=== PATIENT | male | born 1960 | race Caucasian/White ===

== ENCOUNTER 2020-04-29 07:53 | Outpatient (CLI) | payer OTHER, SELFPAY ==
--- NOTE | ~2020-04-29 | XR_ITS ---
EXAMINATION: XR abdomen/kub 1V INDICATION: Left-sided kidney stone TECHNIQUE: Supine views of the abdomen were obtained on 2 radiographs. COMPARISON: 04/22/2019 FINDINGS: There is a stable 6 mm stone of the left kidney upper pole. No additional urolithiasis is i dentified. There are no dilated loops of bowel. Phleboliths are noted in the pelvis. Again noted is a small bone island in the left L3 transverse process which gives the appearance of a ureteral stone. 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 IMPRESSION: 1. Stable left nephrolithiasis. Reviewed, dictated and finalized at location B.
== END 2020-04-29 07:54 | disposition home or self-care (01) ==
PROVIDERS: Visit Provider Urology
DX: N20.0 Calculus of kidney (principal)
CPT/HCPCS: 74018

== ENCOUNTER 2022-12-15 08:58 | Outpatient (CLI) | payer OTHER, SELFPAY ==
--- NOTE | ~2022-12-15 | CT_ITS ---
EXAMINATION: CT abdomen pelvis wo con DATE: 12/15/2022 09:30 INDICATION: Left kidney stone follow-up TECHNIQUE: Computed tomography (CT) of the abdomen and pelvis was performed without intravenous contr ast. Automated exposure control and iterative reconstruction technique were employed. Exam dose: 426 .46 mGy-cm total exam DLP. COMPARISON: 12/15/2022 KUB 04/29/2020 KUB 04/09/2018 CT abdomen pelvis FINDINGS: The lung bases are clear. Normal heart size. No pericardial or pleural effusion. The liver, gallbladder, bile ducts, pancreas, pancreatic duct, spleen and adrenal glands appear larisa l. No right renal mass lesion or right urinary tract calculus or hydroureteronephrosis. No left renal mass lesion is evident on this limited noncontrast examination. Approximately 3 x 4.7 and 4.5 x 8 mm upper pole nonobstructing left renal calculi. Pinpoint nonobstru cting lower pole left renal calculus. No left ureteral calculus or hydroureteronephrosis. The urinary bladder is unremarkable. Mild prostate enlargement. Prostate calcification. There is atherosclerotic calcification but normal caliber of the abdominal aorta. No intraperitoneal or retroperitoneal or pelvic mass lesion or adenopathy or ascites. No left spermatic cord or left testicle is identified. Normal appendix. No bowel obstruction or intraperitoneal free air. No suspicious osteolytic or osteoblastic lesions. IMPRESSION: Nonobstructive left nephrolithiasis Reviewed, dictated and finalized at Location A. Reviewed, dictated and finalized at location B.
--- NOTE | ~2022-12-15 | XR_ITS ---
EXAMINATION: XR abdomen/kub 1V DATE: 12/15/2022 09:23 INDICATION: Left kidney stone. TECHNIQUE: A supine view of the abdomen on 2 radiographs was obtained. COMPARISON: CT abdomen and pelvis 12/15/2022 FINDINGS: There are no dilated loops of bowel. There are approximately 3 stones in left kidney measur ing up to 7 mm. There are phleboliths in the pelvis. IMPRESSION: 1. Left kidney stones. Reviewed, dictated and finalized at location A. IMPRESSION: 1. Left kidney stones.
== END 2022-12-15 08:59 | disposition home or self-care (01) ==
LOC: ANHIMG 09:02
PROVIDERS: Visit Provider Urology
DX: N20.0 Calculus of kidney (principal)
CPT/HCPCS: 74018; 74176

== ENCOUNTER 2023-10-04 11:43 | Emergency (ER) | payer OTHER, SELFPAY ==
--- NOTE | ~2023-10-04 | CT_ITS ---
EXAMINATION: CT abdomen pelvis w con DATE: 10/04/2023 13:01 INDICATION: Left lower quadrant abdominal pain. Right flank pain, hematuria. Nausea. TECHNIQUE: Computed tomography (CT) of the abdomen and pelvis was performed with 100 CC Omnipaque 350 intravenous contrast. Automated exposure control and iterative reconstruction technique were employe d. Exam dose: 966.76 mGy-cm total exam DLP. COMPARISON: 12/15/[address] abdomen pelvis FINDINGS: There is minimal infiltrate and/or atelectasis at the lung bases, involving primarily in th e lower lobes. There is mild cardiomegaly. No pericardial or pleural effusion. Diffuse hepatic steatosis. No hepatic space-occupying mass lesion. The gallbladder appears unremarkab le. No pericholecystic fluid or fat stranding. No bile duct or pancreatic duct dilatation. No pancrea tic mass lesion or calcification. Normal splenic size. Normal morphology of the adrenal glands. Approximately 4 mm probable cyst of the posterior upper pole of the right kidney. The right kidney is otherwise unremarkable. No right urinary tract calculus or hydroureteronephrosis. No left renal space occupying mass lesion. There are several up to approximately 4.7 mm nonobstructin g left renal calculi. There is an approximately 5 mm x 7 obstructing calculus at the proximal left ureter with mild left pe lviectasis of hydronephrosis. The urinary bladder is unremarkable. There is prostate enlargement and mild calcification. There is atherosclerotic calcification of the abdominal aorta but no abdominal aortic aneurysm. No in traperitoneal or retroperitoneal or pelvic mass lesion or adenopathy or ascites. Absent left testicle and spermatic cord. No bowel obstruction, bowel wall thickening, pneumatosis or intraperitoneal free air. No suspicious osteolytic or osteoblastic lesions. 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 Reviewed, dictated and finalized at location B. 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
[2023-10-04 11:45] VITALS: BP 179/88; PULSE 62; RESP 20; TEMP 36.6; O2SAT 98
--- NOTE | 2023-10-04 12:16 | PC.NURSE ---
Pt attempted to go to bathroom for urine sample but wasnt sucessful.
[2023-10-04 12:22] LABS: Basophils Absolute Auto 0.1 K/mm3 (0.0-0.1); Basophils Percent Auto 0.9 % (0.2-1.2); Eosinophils Absolute Auto 0.2 K/mm3 (0-0.3); Eosinophils Percent Auto 2.1 % (0-4.4); Hematocrit 51.8 % (42.0-52.0); Hemoglobin 16.4 g/dL (14.0-18.0); Immature Granulocyte Absolute 0.02 K/mm3 (0.00-0.031); Immature Granulocyte Percent A 0.2 % (0-0.5); Immature Platelet Fraction Pct 8.3 % (0.9-11.2); Lymphocytes Absolute Auto 0.81 K/mm3 (0.9-3.2); Lymphocytes Percent Auto 9.9 % (18.3-44.2); Mean Corpuscular HGB Conc 31.7 g/dl (32-36); Mean Corpuscular Volume 85.2 fl (80-100); Mean Platelet Volume 11.1 fl (7.4-10.4); Monocytes Absolute Auto 0.6 K/mm3 (0.1-0.6); Monocytes Percent Auto 6.8 % (2.6-8.5); Neutrophils Absolute Auto 6.6 K/mm3 (1.3-6.7); Neutrophils Percent Auto 80.1 % (45.5-73.1); Platelet Count Result 225 k/mm3 (150-375); Red Blood Count 6.08 M/mm3 (4.6-6.20); Red Cell Distribution Width 13.3 % (11.5-14.5); White Blood Count 8.2 K/mm3 (4.5-10.0)
--- NOTE | 2023-10-04 12:23 | ED.ABDPAIN ---
HPI - Abdominal Pain General Chief Complaint: Abdominal Pain Stated Complaint: Left flank pain Time Seen by Provider: 10/04/23 12:06 History of Present Illness HPI narrative: 63-year-old male with a reported history of prior kidney stones reports for evaluation for left-sided flank pain, nausea and gross hematuria that developed 3 hours prior to arrival. Patient states he is concerned he has another kidney stone, however they have never presented is painful. He denies chest pain or shortness of breath, fever, dysuria, urinary frequency urgency, decreased urine output, diarrhea, melena or hematochezia. Related Data Allergies Allergy/AdvReac Type Severity Reaction Status Date / Time No Known Allergies Allergy Unverified 10/04/23 11:49 Review of Systems Review of Systems: CONSTITUTIONAL: Denies fever, chills, or sweats. EYES: Denies visual changes, redness, or discharge. ENT: Denies rhinorrhea, congestion, sore throat, or otalgia. CARDIOVASCULAR: Denies chest pain, palpitations, or edema. RESPIRATORY: Denies cough or dyspnea. GASTROINTESTINAL: See HPI GENITOURINARY: Denies dysuria or hematuria. SKIN: Denies rash or itching. MUSCULOSKELETAL: Denies back pain, joint pain, or myalgia. NEUROLOGIC: Denies headache, numbness, or weakness. PSYCHIATRIC: Denies anxiety or depression. Exam Narrative: GENERAL: nontoxic appearing. Patient appears uncomfortable and writhing in exam bed. HEAD: Normocephalic, atraumatic. EYES: PERRLA and EOMI. ENT: Nares clear, no rhinorrhea or epistaxis. Mucous membranes moist. NECK: Supple. CHEST: Clear to auscultation. No respiratory distress. HEART: Regular rate and rhythm. No murmur heard. Normal peripheral pulses. ABDOMEN: Normoactive bowel sounds. Abdomen soft with tenderness in the left lower quadrant. No guarding, rebound or rigidity. Left CVA tenderness. No overlying skin changes. EXTREMITIES: Normal range of motion. No edema. SKIN: Warm, dry, no rash. NEURO: No focal deficits. Alert and oriented x3 Course Vital Signs Vital signs: Vital Signs Temperature 97.9 F 10/04/23 11:45 Pulse Rate 62 10/04/23 11:45 Respiratory Rate 20 10/04/23 11:45 Blood Pressure 179/88 H 10/04/23 11:45 Pulse Oximetry 98 10/04/23 11:45 Oxygen Delivery Room Air 10/04/23 11:45 Temperature 97.9 F 10/04/23 11:45 Pulse Rate 60 10/04/23 14:00 Respiratory Rate 18 10/04/23 14:00 Blood Pressure 167/92 H 10/04/23 14:00 Pulse Oximetry 99 10/04/23 14:00 Oxygen Delivery Room Air 10/04/23 11:45 MDM - Abdominal Pain MDM Narrative Medical decision making narrative: 63-year-old male with prior medical history of ureterolithiasis reports for evaluation for sudden onset left lower quadrant pain, hematuria and nausea. See HPI for further history. Vitals significant for elevated blood pressure 179/88, otherwise unremarkable. He is afebrile and nontoxic appearing however does appear to be in pain. See exam above. Cbc without leukocytosis or anemia. Chemistries unremarkable. Creatinine is normal at 0.8 and BUN is 15. Urinalysis with large amounts hematuria 2+ ketones, no infection. Lipase normal. CT abdomen pelvis shows approximately 5 x 7 mm proximal left ureteral calculus with mild left pelviectasis and hydronephrosis. 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 Patient received IV fluids, Zofran and morphine with improvement in symptoms. His pain is now 4/10 in his resting comfortably in exam bed on re-evaluation. case discussed with Urology on-call, Dr. Vargas, who agrees to discharge the patient home and will follow with him next week for intervention. Plan to discharge him home with Flomax , Zofran and [place]. Strict ED return precautions discussed. He and his are agreeable to plan verbalized understanding. Discharged in stable condition. Lab Data
--- NOTE | 2023-10-04 12:28 | PC.NURSE ---
Pt attempted to provide urine sample and was unsuccessful
[2023-10-04] MEDS: MORPHINE SULFATE (*CRX) 4 MG/ML INJ IV PUSH (12:29)
[2023-10-04] MEDS: SODIUM CHLORIDE 0.9% IV 1,000 ML 999 ML IV CONT (12:29)
[2023-10-04] MEDS: ONDANSETRON INJ 4 MG/2 ML VIAL IV PUSH (12:29)
[2023-10-04 12:30] LABS: Alanine Aminotransferase 41 U/L (6-50); Albumin Level 4.6 g/dL (3.5-5.1); Alkaline Phosphatase 78 U/L (38-126); Anion Gap 12 mmol/L (8-16); Aspartate Amino Transferase 31 U/L (17-59); Bilirubin,Total 0.9 mg/dL (0.2-1.3); Blood Urea Nitrogen 15 mg/dL (9-20); Calcium 9.1 mg/dL (8.4-10.2); Carbon Dioxide 25 mmol/L (22-30); Chloride 101 mmol/L (98-107); Estimated CRCL calculation 82 ml/min; Estimated Glomerular Filt Rate > 60; Glucose 140 mg/dL (65-110); Lipase 226 U/L (23-300); Potassium 4.1 mmol/L (3.4-5.0); Sodium 138 mmol/L (137-145)
[2023-10-04 13:41] LABS: Appearance Urine Slightly Cloudy (Clear); Color Urine Amber (Yellow); Glucose Urine UA Negative (Negative); Ketones Urine 2+ mg/dL (Negative); Protein Urine Negative (Negative); Specific Grav Ur < 1.005 (1.001-1.035); pH Urine 5.5 (5.0-9.0)
[2023-10-04 13:42] LABS: Bilirubin Urine Negative (Negative); Blood Urine 3+ (Negative); Nitrate Urine Negative (Negative)
[2023-10-04 13:43] LABS: Add Urine Microscopic? YES; Leukocyte Esterase Ur Negative LEU/UL (Negative); Urobilinogen Urine 0.2 mg/dL (<2.0)
[2023-10-04 13:44] LABS: Bacteria Urine None Seen /hpf; Non Pathogenic Casts 0-2; RBC Urine >100 /hpf (0-2); Squamous Epithelial Cell Urine None seen /hpf (Few); WBC Urine 0-5 /hpf
[2023-10-04 14:00] VITALS: BP 167/92; PULSE 60; RESP 18; O2SAT 99
== END 2023-10-04 14:59 | disposition home or self-care (01) ==
PROVIDERS: Emergency Medicine; Emergency Provider Physician Assistant
DX: N13.2 Hydronephrosis with renal and ureteral calculous obstruction (principal); Z87.442 Personal history of urinary calculi
CPT/HCPCS: 36415; 74177; 80053; 81001; 83690; 85025; 85055; 96361; 96374; 96375; 99284; J2270; J2405; J7030; Q9967

== ENCOUNTER 2023-10-20 09:48 | Emergency (ER) | payer OTHER, SELFPAY ==
[2023-10-20] VITALS (17 sets, daily range): BP systolic 135–165; BP diastolic 73–94; PULSE 67–71; RESP 20; TEMP 36.4; O2SAT 95–100
--- NOTE | ~2023-10-20 | XR_ITS ---
XR abdomen/kub 1V 10/20/2023 10:56 Indication: Kidney stone Procedure: KUB Comparison: 12/15/2022 Findings: There is a left ureteral stone at the L4 level. There are left renal stones. Bowel gas anil alma nonobstructive. No acute osseous abnormality. There are pelvic phleboliths. Impression: 1: Left mid ureteral and renal stones. Reviewed, dictated and finalized at location A. TRICIAN FRONT Impression: 1: Left mid ureteral and renal stones.
--- NOTE | ~2023-10-20 | CT_ITS ---
EXAMINATION: CT abdomen pelvis wo con DATE: 10/20/2023 10:38 INDICATION: Left-sided kidney stone. Flank pain. TECHNIQUE: Computed tomography (CT) of the abdomen and pelvis was performed without intravenous contr ast. The dose-length product was 875.37 mGy-cm. Automated exposure control and iterative reconstructi on technique were employed. COMPARISON: CT dated 10/04/2023. FINDINGS: Heart size normal. No significant pleural or pericardial effusion. There is a 5 mm left mid ureteral stone with moderate left hydroureteronephrosis. There are nonobstructing bilateral renal st ones. The liver, spleen, pancreas, adrenal glands are unremarkable. Nonobstructive bowel pattern. No free a ir or free fluid. Gallbladder is present. Bladder is unremarkable. No abnormal pelvic masses or fluid collections. IMPRESSION: 1. Left mid ureteral stone measuring 5 mm with moderate hydronephrosis. 2: Nonobstructing bilateral nephrolithiasis. Reviewed, dictated and finalized at location A. E EXAMINER
--- NOTE | 2023-10-20 10:13 | ED.GENADULT ---
HPI - General Adult General Chief complaint: Urogenital-Male Stated complaint: KIDNEY STONES Time Seen by Provider: 10/20/23 10:01 History of Present Illness HPI narrative: 63 old male presenting to the emergency department for evaluation of persistent left flank pain. Patient was diagnosed with a ureteral calculi on the left earlier in the month. Patient is scheduled for lithotripsy in mid October. Patient presents to the emergency department complaining of increased of flank pain, increased nausea without vomiting and decreased urinary output. Related Data Allergies Allergy/AdvReac Type Severity Reaction Status Date / Time No Known Allergies Allergy Unverified 10/04/23 11:49 Review of Systems Review of Systems: All systems reviewed & are unremarkable except as noted in HPI and below Exam Narrative: APPEARANCE: Well appearing, no pain, no distress, well-nourished. HEAD: normocephalic, atraumatic. EYES: PERRLA/EOMI, conjunctivae clear. NOSE: Normal no drainage EARS:TMS clear with good light reflex. THROAT: Pharynx clear, no exudate. NECK: Supple. No adenopathy, no masses. RESPIRATORY: Airway patent, respirations nonlabored. Clear to auscultation bilaterally, no rales, rhonchi, wheezing. CARDIOVASCULAR: Regular rate and rhythm without murmurs rubs or gallops. ABDOMINAL: Soft, nontender, nondistended, normal bowel sounds MUSCULOSKELETAL: Moves all extremities. Strength/ROM intact, No edema, No calf tenderness. NEURO: Alert. Cranial nerves II through XII intact. Good gait. Good coordination SKIN: Warm, dry. Normal Color Course Course Emergency Course: [age] old male presenting to the emergency department for evaluation of left flank pain. Patient does have a known ureteral calculi. Patient states he was having some decreased urinary output and increased pain. Patient is afebrile with no leukocytosis and a stable hemoglobin, patient's kidney function is similar to his baseline. Patient states he does feel improved with the pain medication provided, patient declined to stay in the emergency department. UA showed hematuria with no evidence of underlying infection, CT and x-ray did confirm the kidney stone. Patient does still have follow-up with Urology. Vital Signs Vital signs: Vital Signs Temperature 97.6 F 10/20/23 09:49 Pulse Rate 71 10/20/23 09:49 Respiratory Rate 20 10/20/23 09:49 Blood Pressure 164/94 H 10/20/23 09:49 Pulse Oximetry 97 10/20/23 09:49 Oxygen Delivery Room Air 10/20/23 09:49 Temperature 97.6 F 10/20/23 09:49 Pulse Rate 67 10/20/23 12:45 Respiratory Rate 20 10/20/23 12:45 Blood Pressure 140/80 10/20/23 12:45 Pulse Oximetry 97 10/20/23 12:45 Oxygen Delivery Room Air 10/20/23 09:49 Medical Decision Making Differential Diagnosis Differential Diagnosis: Renal colic, UTI, GASPER Vital Signs Vital Signs: Vital Signs Temperature 97.6 F 10/20/23 09:49 Pulse Rate 71 10/20/23 09:49 Respiratory Rate 20 10/20/23 09:49 Blood Pressure 164/94 H 10/20/23 09:49 Pulse Oximetry 97 10/20/23 09:49 Oxygen Delivery Room Air 10/20/23 09:49 Temperature 97.6 F 10/20/23 09:49 Pulse Rate 67 10/20/23 12:45 Respiratory Rate 20 10/20/23 12:45 Blood Pressure 140/80 10/20/23 12:45 Pulse Oximetry 97 10/20/23 12:45 Oxygen Delivery Room Air 10/20/23 09:49 Lab Data Lab results reviewed: Yes I reviewed the patient's lab results. 10/20/23 10:29 10/20/23 10:29 Labs: Lab Results 10/20/23 10/20/23 Range/Units 10:29 12:07 WBC 9.8 (4.5-10.0) K/mm3 RBC 5.57 (4.6-6.20) M/mm3 Hgb 15.3 (14.0-18.0) g/dL Hct 47.7 (42.0-52.0) % MCV 85.6 (80-100) fl MCH 27.5 (26-34) pg MCHC 32.1 (32-36) g/dl RDW 13.2 (11.5-14.5) % Plt Count 216 (150-375) k/mm3 MPV 10.5 H (7.4-10.4) fl Immature Gran % (Auto) 0.4 (0-0.5) % Neut % (Auto) 82.3 H (45.5-73.1) % Lymph
[2023-10-20] MEDS: HYDROmorphone HCL INJ (*CRX) 1 MG/ML SYR 0.5 MG IV PUSH ×2 (10:17→11:31)
[2023-10-20] MEDS: ONDANSETRON INJ 4 MG/2 ML VIAL IV PUSH (10:17)
[2023-10-20 10:36] LABS: Basophils Absolute Auto 0.1 K/mm3 (0.0-0.1); Basophils Percent Auto 0.7 % (0.2-1.2); Eosinophils Absolute Auto 0.1 K/mm3 (0-0.3); Eosinophils Percent Auto 1.3 % (0-4.4); Hematocrit 47.7 % (42.0-52.0); Hemoglobin 15.3 g/dL (14.0-18.0); Immature Granulocyte Absolute 0.04 K/mm3 (0.00-0.031); Immature Granulocyte Percent A 0.4 % (0-0.5); Lymphocytes Absolute Auto 0.61 K/mm3 (0.9-3.2); Lymphocytes Percent Auto 6.2 % (18.3-44.2); Mean Corpuscular HGB Conc 32.1 g/dl (32-36); Mean Corpuscular Hemoglobin 27.5 pg (26-34); Mean Corpuscular Volume 85.6 fl (80-100); Mean Platelet Volume 10.5 fl (7.4-10.4); Monocytes Absolute Auto 0.9 K/mm3 (0.1-0.6); Monocytes Percent Auto 9.1 % (2.6-8.5); Neutrophils Percent Auto 82.3 % (45.5-73.1); Platelet Count Result 216 k/mm3 (150-375); Red Blood Count 5.57 M/mm3 (4.6-6.20); Red Cell Distribution Width 13.2 % (11.5-14.5); White Blood Count 9.8 K/mm3 (4.5-10.0)
[2023-10-20 10:45] LABS: Alanine Aminotransferase 32 U/L (6-50); Albumin Level 4.2 g/dL (3.5-5.1); Alkaline Phosphatase 63 U/L (38-126); Anion Gap 8 mmol/L (8-16); Aspartate Amino Transferase 30 U/L (17-59); Bilirubin,Total 0.9 mg/dL (0.2-1.3); Blood Urea Nitrogen 19 mg/dL (9-20); Calcium 8.9 mg/dL (8.4-10.2); Carbon Dioxide 26 mmol/L (22-30); Chloride 101 mmol/L (98-107); Estimated CRCL calculation 85 ml/min; Estimated Glomerular Filt Rate > 60; Glucose 153 mg/dL (65-110); Potassium 4.6 mmol/L (3.4-5.0); Sodium 135 mmol/L (137-145)
[2023-10-20 10:47] LABS: Prothrombin Time 13.8 Seconds (11.1-14.7)
[2023-10-20] MEDS: SODIUM CHLORIDE 0.9% IV 1,000 ML 999 ML IV CONT (11:31)
[2023-10-20 12:17] LABS: Add Urine Microscopic? YES; Appearance Urine Clear (Clear); Bacteria Urine None Seen /hpf; Bilirubin Urine Negative (Negative); Blood Urine 3+ (Negative); Color Urine Yellow (Yellow); Glucose Urine UA 2+ mg/dL (Negative); Ketones Urine Negative (Negative); Leukocyte Esterase Ur Negative LEU/UL (Negative); Nitrate Urine Negative (Negative); Non Pathogenic Casts 0-2; Protein Urine Trace mg/dL (Negative); RBC Urine >100 /hpf (0-2); Specific Grav Ur 1.028 (1.001-1.035); Squamous Epithelial Cell Urine None seen /hpf (Few); WBC Urine 0-5 /hpf
[2023-10-20] MEDS: TAMSULOSIN HCL 0.4 MG CAPSULE PO (13:07)
== END 2023-10-20 13:09 | disposition home or self-care (01) ==
PROVIDERS: Emergency Provider Emergency Medicine
DX: N13.2 Hydronephrosis with renal and ureteral calculous obstruction (principal)
CPT/HCPCS: 36415; 74018; 74176; 80053; 81001; 85025; 85610; 85730; 96361; 96374; 96375; 96376; 99284; A9270; J1170; J2405; J7030

== ENCOUNTER 2023-11-07 00:38 | Day surgery (SDC) | payer OTHER, SELFPAY ==
[2023-11-04 13:49] VITALS: BMI 31.6
--- NOTE | 2023-11-04 13:57 | PC.NURSE ---
Report to the Outpatient Waiting Room, entrance under the green pavilion located off [facility], at time _0630_ on date _11/07/23_. Planned Procedure Time: __. Time changes happen often and if your time is changed the preop area will call you the afternoon before. - You and your visitor will be asked to self-screen and do not enter if you have any COVID symptoms. - A mask is optional within the hospital at this time. Patients may have clear liquids (water, carbonated beverages, clear teas, apple juice) until 3 hours prior to surgery with a maximum of 20 ounces. - No food from midnight until time of surgery - Infants may have breast milk until 4 hours before surgery, formula 6 hours prior to surgery. - Children will be allowed to drink immediately following surgery. If applicable, please bring a bottle or sippy cup to assist with drinking. Juice, water, soda, and popsicles are readily available. For infants on formula, please bring formula the day of surgery. Pacifiers are allowed. Take the following medications with a SIP of water the morning of surgery: ____NONE_, MAY TAKE PAIN OR NAUSEA MEDICATION IF NEEDED DO NOT STOP ANY OF YOUR OTHER PRESCRIPTION MEDICATIONS PRIOR TO SURGERY ?EXCEPT THE FOLLOWING Medications to discontinue per physician Date to take last dose Please no make-up, nail latvian, hairspray, perfume, deodorant, or body powder the day of surgery. No jewelry (including any body piercings) or valuables the day of surgery, leave them at home. Please take a shower or bath the night before, or the morning of, surgery with an antibacterial soap. Wear comfortable, loose fitting clothing. Children are encouraged to wear pajamas. - Jewelry must be removed prior to entering the operating room. Rings and piercings that are not removed may be cut off. - The hospital will not accept responsibility for valuables. - Please leave all valuables, including medications, at home the day of surgery. If you are going home after surgery, a licensed truck driver salesperson must drive you home. - NO public transportation without another adult if you receive anesthesia. - We recommend that an adult stay with you for 24 hours following discharge. - We also recommend that you do not drive, make important decision, drink alcoholic beverages, or take any drugs that were not prescribed by your health care provider for at least 24 hours after your discharge time. For Pediatric surgeries, we recommend two adults accompany the child home. Follow any additional instructions given to you from your surgeon. If you or anyone in your household have experienced Covid symptoms in the past week, please notify your surgeon or the nurse liaison at the phone number below for possible testing. Telephone instructions given to __PARRES__and asked if any additional questions and then verbalized understanding. Patient advised to call surgeon office or pre surgery nurse liaison [phone] if any additional questions.
--- NOTE | 2023-11-06 09:44 | P.PNAN_ITS ---
Anes - Initial Pre Proc Eval Procedure: Operation Date: 11/07/23 08:30 Proposed Procedures p Cystoscopy, Left Ureteroscopy, Possible Left Retrograde Pyelogram, Possible Left Stone Extraction, Possible Left Stent Placement, Possible Holmium Laser - Shahzad Rico MD Date/Time: 11/06/23 09:44 Surgeon: Shahzad Rico MD Pre Op Diagnosis: left kidney stones Patient Data Age: 63 Gender: M Height: 1.78 m Weight: 100 kg Allergies Allergy/AdvReac Type Severity Reaction Status Date / Time No Known Allergies Allergy Unverified 11/07/23 06:44 Home Medications Medication Instructions Recorded Confirmed Type hydrocodone 5 mg-acetaminophen 325 1 tablet PO Q8H PRN pain #14 tabs 10/04/23 11/07/23 Rx mg tablet lisinopril 5 mg tablet 5 mg PO DAILY 11/04/23 11/07/23 History metformin 500 mg tablet 500 mg PO DAILY 11/04/23 11/07/23 History ondansetron 4 mg disintegrating 4 mg PO Q8H PRN Nausea 11/04/23 11/07/23 History tablet pravastatin 80 mg tablet 80 mg PO HS 11/04/23 11/07/23 History Patient hx anesthesia problems: none Family hx anesthesia problems: none Results Review: All pre-operative results and documents have been reviewed as part of the pre- operative evaluation. [facility] Past Medical History Medical History (Updated 11/06/23 @ 09:44 by Russ Redd DO) Diabetes type 2, controlled Hyperlipidemia Hypertension Social History Social History Smoking status: Never smoker Alcohol intake: former Substance use: never Living arrangements: with family Anes - Eval Final PreProcedure Day of Procedure 11/06/23 09:44 Patient weight: obese Heart: regular rate and rhythm Lungs: clear to auscultation Airway: Mallampati scale class II Neurological: alert and oriented Last oral intake: >/= 8 hours ASA classification: III Emergent: no Anesthetic plan: proceed Anesthesia type and monitoring: general LMA and standard monitoring Results Review: All pre-operative results and documents have been reviewed as part of the pre- operative evaluation. Informed Consent: The patient's anesthetic plan and its attendant risks and benefits were discussed with the patient/family/POA. Questions were solicited and answers provided to the satisfaction of the patient/family/POA.
[2023-11-07] VITALS (7 sets, daily range): BP systolic 128–150; BP diastolic 78–87; PULSE 48–68; RESP 10–20; TEMP 36.4–36.5; O2SAT 96–100
--- NOTE | ~2023-11-07 | XR_ITS ---
EXAMINATION: XR retrograde pyelogram LT DATE: 11/07/2023 08:14 INDICATION: Left ureteral stone. TECHNIQUE: 63 intraoperative fluoroscopic views of the abdomen and pelvis were obtained. I was not pr esent. Fluoroscopy exposure time was 54 seconds. COMPARISON: Abdomen radiographs 10/20/2023, CT 10/20/23 FINDINGS: The left-sided retrograde pyelogram demonstrates moderate hydronephrosis. IMPRESSION: 1. Moderate left hydronephrosis. Reviewed, dictated and finalized at location A. LASSER
--- NOTE | 2023-11-07 06:10 | ECG_ITS ---
Measurements Intervals [place] Rate: 59 P: 5 MI: 208 QRS: -8 QRSD: 122 T: 17 QT: 439 QTc: 435 Interpretive Statements SINUS BRADYCARDIA MODERATE INTRAVENTRICULAR CONDUCTION DELAY [110+ ms QRS DURATION] NONSPECIFIC T-WAVE ABNORMALITY ABNORMAL ECG NO PREVIOUS ECG AVAILABLE FOR COMPARISON Electronically Signed On 11-07-2023 12:39:31 ADHESION TESTER by Inderjit Osman M.D.
--- NOTE | 2023-11-07 06:12 | WPDHPUPDATE1 ---
History and Physical Update Update Date/Time: 11/07/23 06:12 History and Physical has been reviewed, including an updated exam of the patient. There are NO changes in the patient's condition. Risks, benefits, and alternatives have been discussed and questions answered. Patient agrees to proceed with procedure.
[2023-11-07] MEDS: LACTATED RINGERS 1,000 ML 30 ML IV CONT ×2 (06:50→08:12)
[2023-11-07 06:56] LABS: Glucose Point of Care 121 mg/dl (65-105)
[2023-11-07] MEDS: LIDOCAINE HCL 2% GEL UROJET 10 ML PKG MUCOUS MEM (07:00)
[2023-11-07] MEDS: ceFAZolin 2 GM/D5W 50 ML 2 GM/50 ML BAG IVPB (07:27)
[2023-11-07] MEDS: KETOROLAC 30 MG/ML VIAL (*BKC) IV PUSH (08:05)
--- NOTE | 2023-11-07 08:13 | P.OP_ITS ---
Procedure Note - Detailed Date of Procedure 11/07/23 Pre-op Diagnosis Left ureteral stone Post-op Diagnosis Same Procedure Performed Cystoscopy, left ureteroscopy with laser lithotripsy, stone extraction and left retrograde pyelography Surgeon Shahzad Rico MD Anesthesia General Description of Procedure patient is brought to the operative suite was prepped and draped in routine sterile fashion while in dorsal lithotomy position after the uneventful induction of a general LMA anesthetic. Cystoscopy is undertaken with a 19 F rigid cystoscope. There was no urethral stricture with moderate lateral lobe hyperplasia and a small median lobe of the prostate. Bladder mucosa is normal without hyperemia and there was no intravesical foreign body or neoplasm. He has a single orthotopic ureteral orifice bilaterally. A 0.035 in glidewire was advanced in left renal pelvis and the distal ureter was dilated with an 8 F 10 F dilator. I 1st performed rigid ureteroscopy and found his 7 mm stone in the distal left ureter. Using the Eliezer laser in a dusting mode I fractured the stone into tiny pieces, all of which were removed with a 1.9 F disposable basket. I placed a 7.5 F flexible ureteral scope into the kidney, performed retrograde pyelography and inspected the entire collecting system and more p roximal ureter. There were no additional identifiable ureteral stone fragments. Because of the ease of this manipulation I opted not to place ureteral stent. Scopes and wires removed and he was taken recovery room good condition. Drains No Packing No Pathology Yes Complications No immediate complications
[2023-11-07 08:37] LABS: Glucose Point of Care 121 mg/dl (65-105)
== END 2023-11-07 09:40 | disposition home or self-care (01) ==
PROVIDERS: Visit Provider Urology
PROC: (CPT 52352; principal; 2023-11-07 08:30)
DX: N20.1 Calculus of ureter (principal); I10 Essential (primary) hypertension; E78.5 Hyperlipidemia, unspecified; E11.9 Type 2 diabetes mellitus without complications; E66.9 Obesity, unspecified; Z68.31 Body mass index [BMI] 31.0-31.9, adult; Z79.891 Long term (current) use of opiate analgesic; Z79.84 Long term (current) use of oral hypoglycemic drugs
CPT/HCPCS: 52356; 74420; 82365; 82948; 88300; 93005; C1769; J0690; J1885; J2250; J2405; J2704; J3010; J7120; Q9966